=== PATIENT | male | born 2000 | race Caucasian/White ===

== ENCOUNTER 2020-12-16 17:01 | Emergency (ER) | payer OTHER ==
[2020-12-16 17:17] VITALS: BP 139/79; PULSE 90; RESP 18; TEMP 97.7
[2020-12-16] MEDS ORDERED: KETOROLAC 15 MG/ML 1 ML VIAL IM STA (18:25)
--- NOTE | 2020-12-16 18:25 | ED ---
ENT HPI - General Chief complaint: Dental/Oral Stated complaint: Tooth pain Source: patient, RN notes reviewed Mode of arrival: ambulatory Limitations: no limitations - History of Present Illness Initial comments: 20-year-old white male alert and oriented 4, presents to the emergency room with complaints of upper left tooth pain for a couple of months. Patient states that he does have an appointment with the dentist on January 04 but he cannot tolerate the pain. He states that the pain is shooting across the left side of his face to his ear. He has been taking Motrin with no relief. He denies any fevers. There is no evidence of abscess. MD complaint: tooth pain -: month(s) (2) Location: tooth # (14) Severity scale (1-10): 8 Quality: aching Consistency: constant Improves with: none Worsens with: eating - Related Data Previous Rx's Medication Instructions Recorded Amoxicillin/Potassium Clav 1 tab PO Q12HR #20 tab 02/15/16 [Augmentin 875-125 Tablet] Penicillin V Potassium [Pen Vee K] 500 mg PO QID 10 Days #40 tablet 12/16/20 Allergies Allergy/AdvReac Type Severity Reaction Status Date / Time No Known Allergies Allergy Verified 12/16/20 17:17 Review of Systems ROS Statement: Those systems with pertinent positive or pertinent negative responses have been documented in the HPI. ROS Other: All systems not noted in ROS Statement are negative. Past Medical History Past Medical History: No Reported History History of Any Multi-Drug Resistant Organisms: None Reported Past Surgical History: No Surgical Hx Reported Additional Past Surgical History / Comment(s): nasal surgery Past Psychological History: Anxiety Smoking Status: Current every day smoker Past Alcohol Use History: None Reported Past Drug Use History: Marijuana General Exam Limitations: no limitations General appearance: alert, in no apparent distress Head exam: Present: atraumatic, normocephalic, normal inspection Eye exam: Present: normal appearance, PERRL, EOMI, conjunctival injection. Absent: scleral icterus, periorbital swelling Pupils: Present: normal accommodation ENT exam: Present: normal exam, normal oropharynx, mucous membranes moist, other (Pain with tapping of tooth #14 no abscess noted) Neck exam: Present: normal inspection, full ROM. Absent: tenderness, meningismus, lymphadenopathy Respiratory exam: Present: normal lung sounds bilaterally. Absent: respiratory distress, wheezes, rales, rhonchi, stridor, chest wall tenderness, accessory muscle use, decreased breath sounds Cardiovascular Exam: Present: regular rate, normal rhythm, normal heart sounds. Absent: systolic murmur, diastolic murmur, rubs, gallop, clicks GI/Abdominal exam: Present: soft, normal bowel sounds. Absent: distended, tenderness, guarding, rebound, rigid Neurological exam: Present: alert, oriented X3, CN II-XII intact Psychiatric exam: Present: normal affect, normal mood Skin exam: Present: warm, dry, intact, normal color. Absent: rash Course Vital Signs 12/16/20 17:15 Temperature 97.7 F Pulse Rate 90 Respiratory 18 Rate Blood Pressure 139/79 O2 Sat by Pulse 98 Oximetry Medical Decision Making - Medical Decision Making Patient has had dental pain for 2 months. He does have an appointment scheduled with the dentist on January 04. There is no evidence of abscess or infection, patient has been afebrile. There is no nausea or vomiting. He will be given antibiotics and pain medication. Patient offered a dental block and he declined at this time. Directed to return to be any worsening symptoms , pain or fevers. Case discussed with Dr. Verduzco Disposition Clinical Impression: Pain, dental Disposition: HOME SELF-CARE Condition: Good Instructions (If sedation given, give patient instructions): Toothache (ED) Additional Instructions: Take medication as prescribed and follow up with dentist as scheduled on January 04. Return if any worsening pain, fevers or nausea vomiting. Prescriptions: Penicillin V Potassium [Pen Vee K] 500 mg PO QID 10 Days #40 tablet Is patient prescribed a controlled substance at d/c from ED?: No Referrals: None,Stated [Primary Care Provider] - 1-2 days Time of Disposition: 18:25
[2020-12-16] MEDS ORDERED: ACET/COD 300 MG/30 MG STARTER PACK 6 TAB BTL PO STA (18:28)
== END 2020-12-16 19:06 | disposition home or self-care (01) ==
LOC: EC 17:01
DX: K08.89 Other specified disorders of teeth and supporting structures (principal); F41.9 Anxiety disorder, unspecified; F17.200 Nicotine dependence, unspecified, uncomplicated; F12.90 Cannabis use, unspecified, uncomplicated
CPT/HCPCS: 99282; 96372; J1885

== ENCOUNTER 2021-03-28 19:32 | Emergency (ER) | payer OTHER ==
--- NOTE | 2021-03-28 22:08 | ED ---
Lower Extremity Injury HPI - General Stated Complaint: Left ankle injury Time Seen by Provider: 03/28/21 22:07 - History of Present Illness Initial Comments: 21 year-old male presenting for left ankle injury. Patient states that he was about 15-20 feet from a ladder around 4pm. States that left leg got caught and twisted in the ladder rungs. Denies hitting his head or losing consciousness. Denies any neck or back pain. He is able to ambulate with pain. Denies any knee pain. Denies history of injury to this extremity. - Related Data Previous Rx's Medication Instructions Recorded Amoxicillin/Potassium Clav 1 tab PO Q12HR #20 tab 02/15/16 [Augmentin 875-125 Tablet] Penicillin V Potassium [Pen Vee K] 500 mg PO QID 10 Days #40 tablet 12/16/20 Ibuprofen [Motrin] 600 mg PO Q8HR PRN #30 tab 03/28/21 Allergies Allergy/AdvReac Type Severity Reaction Status Date / Time No Known Allergies Allergy Verified 03/28/21 22:13 Review of Systems ROS Statement: Those systems with pertinent positive or pertinent negative responses have been documented in the HPI. ROS Other: All systems not noted in ROS Statement are negative. Past Medical History Past Medical History: No Reported History History of Any Multi-Drug Resistant Organisms: None Reported Past Surgical History: No Surgical Hx Reported Additional Past Surgical History / Comment(s): nasal surgery Past Psychological History: Anxiety Smoking Status: Current every day smoker Past Alcohol Use History: None Reported Past Drug Use History: Marijuana General Exam General appearance: alert, in no apparent distress Eye exam: Present: normal appearance, PERRL, EOMI. Absent: scleral icterus, conjunctival injection, periorbital swelling ENT exam: Present: normal exam, normal oropharynx, mucous membranes moist Neck exam: Present: normal inspection, other (Nontender, no step-off, no deformity to firm midline palpation of the posterior cervical spine. Full range of motion without pain or limitation.). Absent: tenderness, meningismus, lymphadenopathy Respiratory exam: Present: normal lung sounds bilaterally. Absent: respiratory distress, wheezes, rales, rhonchi, stridor Cardiovascular Exam: Present: regular rate, normal rhythm, normal heart sounds. Absent: systolic murmur, diastolic murmur, rubs, gallop, clicks GI/Abdominal exam: Present: soft, normal bowel sounds. Absent: distended, tenderness, guarding, rebound, rigid Extremities exam: Present: full ROM, normal capillary refill, other (Left ankle swelling, tenderness bilateral malleolus. Skin pink, warm, dry. Pedal pulse 2+.). Absent: tenderness, pedal edema, joint swelling, calf tenderness Back exam: Present: normal inspection, other (Nontender, no step-off, no deformity to firm midline palpation of the thoracic and lumbar vertebrae. Full range of motion without pain or limitation.). Absent: vertebral tenderness Neurological exam: Present: alert, oriented X3, CN II-XII intact Psychiatric exam: Present: normal affect Skin exam: Present: warm, dry, intact, normal color. Absent: rash Course Vital Signs 03/28/21 22:07 Temperature 98.2 F Pulse Rate 85 Respiratory 15 Rate Blood Pressure 138/93 O2 Sat by Pulse 97 Oximetry Medical Decision Making - Medical Decision Making 21-year-old male patient presented for evaluation of left hip pain and swelling. Physical examination did reveal soft tissue swelling surrounding the medial and lateral malleolus. Neurovascular status was intact. X-ray of the left tib-fib and ankle were obtained, negative for acute abnormalities. He was placed in ankle stirrup splint. Educated regarding rest, ice, elevation. Instructed to follow-up with his primary care physician for recheck in 1-2 days. Return parameters were discussed in detail. He verbalizes understanding and agrees with this plan. My attending is Dr. Ruiz. Disposition Clinical Impression: Left ankle sprain Disposition: HOME SELF-CARE Condition: Good Instructions (If sedation given, give patient instructions): Ankle Sprain (ED) Additional Instructions: Use splint for comfort and support. Take Tylenol and Motrin for pain relief. Rest, ice, elevate the ankle. Return for any new, worsening, or concerning symptoms. Prescriptions: Ibuprofen [Motrin] 600 mg PO Q8HR PRN #30 tab PRN Reason: Pain Is patient prescribed a controlled substance at d/c from ED?: No Referrals: None,Stated [Primary Care Provider] - 1-2 days Time of Disposition: 22:47
[2021-03-28 22:13] VITALS: BP 138/93; PULSE 85; RESP 15; TEMP 98.2
--- NOTE | 2021-03-28 22:39 | XR ---
EXAMINATION TYPE: XR tibia fibula LT DATE OF EXAM: 03/28/2021 COMPARISON: NONE HISTORY: Fall from a ladder. Pain TECHNIQUE: 2 views FINDINGS: I see no fracture nor dislocation. Joint spaces are normal. Knee joint and ankle joint appe ar intact. IMPRESSION: Negative left tibia and fibula exam.
--- NOTE | 2021-03-28 22:40 | XR ---
EXAMINATION TYPE: XR ankle complete LT DATE OF EXAM: 03/28/2021 COMPARISON: NONE HISTORY: Fall. Pain TECHNIQUE: 3 views FINDINGS: There is soft tissue swelling over the lateral malleolus. Ankle mortise is anatomic. I see no fracture. IMPRESSION: Soft tissue swelling. No fracture seen.
== END 2021-03-28 23:04 | disposition home or self-care (01) ==
LOC: EC 19:32
DX: S93.402A Sprain of unspecified ligament of left ankle, initial encounter (principal); F17.200 Nicotine dependence, unspecified, uncomplicated; F12.90 Cannabis use, unspecified, uncomplicated; X50.1XXA Overexertion from prolonged static or awkward postures, initial encounter
CPT/HCPCS: 29515; 99283